=== PATIENT | male | born 1995 | race Caucasian/White ===

== ENCOUNTER 2019-05-31 15:25 | Outpatient (CLI) | payer MEDICAID ==
--- NOTE | 2019-06-01 10:28 | XRAY Report ---
Reason: HAND PAIN Procedure Date: 05/31/2019 Accession Number: [id number] Procedure: XRN - Hand 2 View RT CPT Code: Final Report FULL RESULT: EXAM: RIGHT HAND RADIOGRAPHY EXAM DATE: 05/31/2019 03:48 PM. CLINICAL HISTORY: HAND PAIN. COMPARISON: None. TECHNIQUE: 2 views. FINDINGS: Bones: Foreshortening of fifth metacarpal with slight thickening of the metacarpal base compatible with old fracture. No acute fracture or other bone lesion. Joints: Mild degenerative changes in the fifth CMC joint. Otherwise unremarkable. Soft Tissues: Unremarkable. IMPRESSION: Fifth CMC degenerative changes. No acute disease. [facility]
--- NOTE | 2019-06-01 10:37 | XRAY Report ---
Reason: wrist pain, right Procedure Date: 05/31/2019 Accession Number: [id number] / [id number] Procedure: XRN - Wrist 3 View RT CPT Code: Final Report FULL RESULT: EXAM: RIGHT WRIST RADIOGRAPHY EXAM DATE: 05/31/2019 03:48 PM. CLINICAL HISTORY: Wrist pain, right. COMPARISON: HAND 2 VIEW RT 05/31/2019 3:47 PM. TECHNIQUE: 3 views. FINDINGS: Bones: See separate report for fifth metacarpal base findings. No acute fractures or bone lesions. Joints: Mild degenerative changes in the fifth CMC joint. Otherwise unremarkable. Soft Tissues: Unremarkable. IMPRESSION: Mild fifth CMC degenerative changes. [facility]
== END 2019-05-31 15:26 | disposition home or self-care (01) ==
LOC: DI.N 15:25
PROVIDERS: ATTEND Physician Assistant Medical
DX: M19.041 Primary osteoarthritis, right hand (principal)

== ENCOUNTER 2022-04-02 08:00 | Outpatient (CLI) | payer MEDICAID ==
[2022-04-02 23:02] LABS: CHLAMYDIA TRACHOMATIS DNA NEGATIVE (NEGATIVE); NEISSERIA GONORRHOEAE DNA NEGATIVE (NEGATIVE)
[2022-04-03 06:10] LABS: HCV AB <0.1 s/co ratio (0.0-0.9)
[2022-04-03 07:10] LABS: HIV SCREEN 4TH GENERATION Non Reactive (Non Reactive)
[2022-04-03 08:10] LABS: HSV 1 IGG TYPE SPEC <0.91 index (0.00-0.90); HSV 2 IGG TYPE SPEC <0.91 index (0.00-0.90)
[2022-04-03 09:09] LABS: RPR Non Reactive (Non Reactive)
== END 2022-04-02 23:59 | disposition home or self-care (01) ==
LOC: LAB.N 08:00
PROVIDERS: ATTEND Family Medicine
DX: Z11.3 Encounter for screening for infections with a predominantly sexual mode of transmission (principal)
CPT/HCPCS: 36415; 86592; 86695; 86696; 86803; 87389; 87491; 87591; 87661